=== PATIENT | male | born 1965 | race Two or more races ===

== ENCOUNTER 2025-08-01 11:22 | Emergency (ER) | payer OTHER ==
[2025-08-01 11:31] VITALS: BP 147/78; PULSE 68; RESP 18; TEMP 97.7; BMI 27.3
== END 2025-08-01 12:14 | disposition home or self-care (01) ==
LOC: JERFT 11:22
DX: S80.812A Abrasion, left lower leg, initial encounter (principal); W20.8XXA Other cause of strike by thrown, projected or falling object, initial encounter
CPT/HCPCS: 99283-25